=== PATIENT | female | born 1965 | race Caucasian/White ===

== ENCOUNTER 2022-06-28 12:28 | Outpatient (CLI) | payer BC ==
--- NOTE | 2022-07-01 12:25 | Ultrasound Report ---
LIMITED ULTRASOUND OF RIGHT BREAST AND AXILLA: 06/28/2022 CLINICAL: Palpable right axilla lump. Comparison is made to exams dated: 06/28/2022 mammogram - [facility], 03/31/2020 ma mmogram, 02/25/2019 mammogram, 02/25/2019 ultrasound, 11/03/2017 mammogram, [facility]. Color flow and real-time ultrasound of the right breast axilla were performed. Baron scale images of the real-time examination were reviewed. No significant abnormalities were seen sonographically in the right axilla. IMPRESSION: NEGATIVE There is no sonographic evidence of malignancy. A 1 year screening mammogram is recommended. This exam was interpreted at Station ID: [id number]. Electronically Signed By: Isaiah Jordan M.D., jr/[email or web address]:06/28/2022 14:12:33 Ultrasound BI-RADS: 1 Negative BI-RADS CATEGORY: (1) - 1 RECOMMENDATION: (ANNUAL) - Recommend routine annual screening mammography. [id number] 1 year screening LATERALITY: (B)
--- NOTE | 2022-07-01 12:25 | Mammography Report ---
BILATERAL DIGITAL DIAGNOSTIC MAMMOGRAM 3D/2D: 06/28/2022 CLINICAL: Palpable right axillary lump. Due for bilateral imaging. Comparison is made to exams dated: 03/31/2020 mammogram, 02/25/2019 ultrasound, 02/25/2019 mammogram, and 11/03/2017 mammogram - [facility]. There are scattered areas of fibroglandular density in both breasts (category b / 25%-50% glandular t issue). No significant masses, calcifications, or other findings are seen in either breast. IMPRESSION: INCOMPLETE: NEEDS ADDITIONAL IMAGING EVALUATION No suspicious finding. Ultrasound of the reportedly palpable lump in the right axilla is being perfo rmed. This exam was interpreted at Station ID: [id number]. NOTE: For mammograms, a report in lay terms will be sent to the patient. Approximately 15% of breast malignancies will not be visualized mammographically. In the management of a palpable breast mass, a negative mammogram must not discourage biopsy of a clinically suspicious lesion. Electronically Signed By: Isaiah Jordan M.D. jr/:06/28/2022 14:12:19 ACR BI-RADS Category 0: Incomplete 3340F PARENCHYMAL PATTERN: (A) - The breast(s) demonstrate(s) scattered fibroglandular densities. BI-RADS CATEGORY: (0) - 0 Ultrasound [id number] Immediate follow-up LATERALITY: (B)
== END 2022-06-28 12:29 | disposition home or self-care (01) ==
LOC: DI 12:28
PROVIDERS: ATTEND Nurse Practitioner Family
DX: N63.31 Unspecified lump in axillary tail of the right breast (principal)